=== PATIENT | male | born 1985 | race African-American/Black ===

== ENCOUNTER 2020-01-31 09:24 | Emergency (ER) | payer OTHER, SELFPAY ==
[2020-01-31 09:34] VITALS: BP 159/101; PULSE 89; RESP 16; TEMP 36.6; O2SAT 97
[2020-01-31] MEDS: Acetaminophen 500 MG TAB 1000 MG PO (10:26)
[2020-01-31 10:39] LABS: Abs Immature Grans 0.02 10^3/uL (0.0-0.06); Absolute Basophil Count 0.02 10^3/uL (0.0-0.2); Absolute Eosinophil Count 0.02 10^3/uL (0.0-0.7); Absolute Lymphocyte Count 1.98 10^3/uL (1.2-3.4); Absolute Monocyte Count 0.37 10^3/uL (0.1-0.8); Absolute Neutrophil Count 5.92 10^3/uL (1.2-6.7); Basophils % 0.2; Eosinophils % 0.2; HCT 49.3 % (40.0-50.0); HGB 16.2 g/dL (13.5-17.5); Immature Grans % 0.2; Lymphocytes % 23.8; MCH 28.4 pg (27.0-33.0); MCHC 32.9 % (32.0-36.0); MCV 86.5 fL (80-95); MPV 10.1 fL (8.0-11.0); Monocytes % 4.4; Neutrophils % 71.2; Nucleated RBC 0 %; Platelet Count 254 10^3/uL (130-400); RDW 12.2 % (11.8-14.1); RDW-SD 38.9 fL; WBC 8.33 10^3/uL (4.4-10.8)
[2020-01-31] MEDS: Buprenorphine/Naloxone 8 mg/2 mg FILM 1 EACH SL ×2 (10:55→13:00)
[2020-01-31 11:02] LABS: Tricyclic Antidepressants Negative (Negative)
[2020-01-31 11:04] LABS: *AMPHETAMINES SCREEN URINE Negative (Negative); *BARBITURATES SCREEN URINE Negative (Negative); *BENZODIAZEPINES SCREEN URINE Negative (Negative); Cannabinoids THC POSITIVE (Negative); Cocaine Screen,Urine Negative (Negative); METHADONE URINE SCREEN Negative (Negative); OPIATES URINE SCREEN Negative (Negative)
--- NOTE | 2020-01-31 11:08 | ED.GENADUL_ITS ---
Discharge Plan Disposition Patient Disposition: HOME Condition: Stable Discharge Details Clinical Impression: Opiate withdrawal Primary Care Provider: None,None ED Provider: Rony Burns Discharge Instructions Instructions: Opioid Withdrawal (ED) Additional Instructions: At this time you have been provided with a medical screening examination, laboratory values, and set up with the [facility] program Sunday morning between 6 and 7 AM. Your first dose of Suboxone was given here in the ER and a second film will be given to go home with you to take tomorrow at 11 AM. Please watch for new or worsening symptoms and return to the ER for any concerns. Narcan given, please use as directed. Watch for new or worsening symptoms and return to the ER for any concerns. Discharge Data Discharge Date/Time-TO BE ENTERED AT DEPARTURE: 01/31/20 13:14 Medical Decision Making 34-year-old gentleman, no significant past medical history, presenting requesting to initiate Suboxone therapy. He has been snorting heroin for approximately 1-1/2 months. Feels as though he is going through mild withdrawal symptoms at the moment. He has no additional questions or concerns. We initiated the MAT packet. Patient is 18 years old. He is agreeable to giving both urine and blood samples. Samples obtained. Initial COWS score was 7. Both the care management and investment recovery technician were contacted. Please see their notes and involvement. Patient request something for discomfort, was given a gram of Tylenol. All consent forms were signed. Laboratory values resulted and do not reveal any obvious emergent process. A single dose of 8-2 Suboxone was given. Patient did report significant improvement of his symptoms. He attempted to eat lunch, became nauseous. 4mg p.o. Zofran given. Nausea resolved. Patient was observed for over 45 minutes.[facility] program contacted. Patient is to go there on Sunday between 6 and 7 AM to initiate therapy. He will be discharged from the ER today with a single sublingual Suboxone film and Narcan. Patient confirms understanding of his evaluation and plan moving forward. Patient is grateful for our help today and has no additional questions or concerns upon discharge. Lab Data Lab results reviewed: Yes I reviewed the patient's lab results. Lab results narrative: Laboratory Tests Range/Units 01/31/20 01/31/20 01/31/20 10:30 10:30 10:40 WBC (4.4-10.8) 10^3/uL 8.33 RBC (4.36-5.78) 10^6/uL 5.70 Hgb (13.5-17.5) g/dL 16.2 Hct (40.0-50.0) % 49.3 MCV (80-95) fL 86.5 MCH (27.0-33.0) pg 28.4 MCHC (32.0-36.0) % 32.9 RDW (11.8-14.1) % 12.2 Plt Count (130-400) 10^3/uL 254 MPV (8.0-11.0) fL 10.1 Immature Gran % 0.2 Neutrophils % 71.2 Lymphocytes % 23.8 Monocytes % 4.4 Eosinophils % 0.2 Basophils % 0.2 Nucleated RBC % % 0 Absolute Neutrophils (1.2-6.7) 10^3/uL 5.92 Absolute Lymphocytes (1.2-3.4) 10^3/uL 1.98 Absolute Monocytes (0.1-0.8) 10^3/uL 0.37 Absolute Eosinophils (0.0-0.7) 10^3/uL 0.02 Absolute Basophils (0.0-0.2) 10^3/uL 0.02 Sodium (136-145) mmol/L 138 Potassium (3.5-5.1) mmol/L 4.1 Chloride (98-107) mmol/L 103 Carbon Dioxide (21.0-32.0) mmol/L 24.4 Anion Gap (3-11) mmol/L 10.6 BUN (7-18) mg/dL 9 Creatinine (0.70-1.30) mg/dL 1.07 Estimated GFR/1.73 m2 (mL/min/1.73m2) >= 60.00 Glucose (74-106) mg/dL 108 H Calcium (8.5-10.1) mg/dL 9.8 Total Bilirubin (0.2-1.0) mg/dL 0.8 AST (15-37) U/L 53 H ALT (16-63) U/L 85 H Alkaline Phosphatase (46-116) U/L 57 Total Protein (6.4-8.2) g/dL 8.6 H Albumin (3.4-5.0) g/dL 4.2 Urine Opiates Screen (Negative) Negative Urine Methadone Screen (Negative) Negative Ur Barbiturates Screen (Negative) Negative Ur Tricyclics Screen (Negative) Negative Ur Amphetamines Screen (Negative) Negative U Benzodiazepines Scrn (Negative) Negative Urine Cocaine Screen (Negative) Negative Ur THC Screen (Negative) Positive A Ethyl Alcohol (<3) mg/dL < 3.0 HPI General Mode of arrival: ambulatory . Date/Time Provider Initiated Documentation: 01/31/20 09:25 . Limitations to Documentation: no limitations . Information obtained by: patient . HPI Narrative: This is a 34-year-old gentleman, denies significant past medical history, presenting to the ER today requesting to initiate ULISES. He states that approximately 1-1/2 months ago he was tricked into snorting heroin, has been using daily ever since. He last used 4 days ago. Now feels shaky, nauseous, body aches, anxious. Denies recent illness or trauma. He denies any other drug use or alcohol use. He would like to initiate therapy with the [facility] program during business hours and is coming to our ER today to initiate therapy. He tells me that he has never used Suboxone before. No additional questions or concerns. Denies any IV drug use whatsoever. General Stated Complaint: DrugWithdr/MAT TONIA: 3 Review of Systems Constitutional Constitutional: Denies fatigue, Denies fever(s) and Denies headache(s) ENT Ears, Nose, Mouth, and Throat: Denies headache(s) Cardiovascular Cardiovascular: Denies chest pain and Denies dyspnea Respiratory Respiratory: Denies cough and Denies dyspnea Gastrointestinal Gastrointestinal: Reports abdominal pain (Cramping) and Denies vomiting Musculoskeletal Musculoskeletal: Reports myalgias Integumentary/Breasts Skin/Breast: Denies rash Neurologic Neurologic: Denies headache(s) Endocrine Endocrine: Denies fatigue [facility] Social History Smoking/Tobacco Use Status: Current every day Tobacco Type: e-cigarettes Smoking risk assessment performed?: Yes Alcohol Intake: never Drug use: Daily Substance use type: heroin Details: x 1 month Do you feel safe at home: Yes Do you feel safe in your relationship?: Yes Exam Const General: cooperative, healthy appearing, comfortable, no acute distress and anxious (Minimally) Orientation: alert and awake [facility] Head: normal to inspection, normocephalic and atraumatic Face and sinus: normal facial exam Mouth: moist mucous membranes Eyes General: appearance normal, both eyes and all related structures Conjunctivae: conjunctivae normal Sclera: sclerae normal Neck Neck: normal visual inspection, full ROM, meningismus present, trachea midline and supple Resp Effort & Inspection: normal respiratory effort and able to speak in complete sentences Auscultation: clear to auscultation bilaterally Cardio Rate: regular rate Rhythm: regular rhythm GI Palpation: soft, not firm, no guarding and nontender Auscultation: normal bowel sounds Back/Spine/Pelvis Back: back tenderness (Diffuse mild lumbar) Skin General skin exam: no rashes or lesions noted Neuro General: patient alert, patient awake, patient oriented x3, moves all extremities and no focal motor deficits Cognition: normal cognition Speech: speech normal Gait: normal gait Motor: muscle tone normal throughout Sensory Exam: no sensory deficits noted Extrem General: normal to inspection, full ROM and capillary refill normal Psych Appearance: grossly normal Mental Status: mental status grossly normal Course Vital Signs Vital signs: Vital Signs Temperature 36.6 C 01/31/20 09:34 Pulse 89 01/31/20 09:34 Respiratory Rate 16 01/31/20 09:34 Blood Pressure 159/101 H 01/31/20 09:34 Pulse Oximetry 97 01/31/20 09:34 Temperature 36.6 C 01/31/20 09:34 Temperature Source Skin 01/31/20 09:34 Pulse 89 01/31/20 09:34 Respiratory Rate 16 01/31/20 09:34 Respiratory Effort Non-Labored 01/31/20 09:36 Respiratory Pattern Normal 01/31/20 09:42 Blood Pressure 159/101 H 01/31/20 09:34 Blood Pressure Position Sitting 01/31/20 09:34 Pulse Oximetry 97 01/31/20 09:34 Oxygen Delivery Method Room Air 01/31/20 09:34 Oxygen Flow Rate 0 01/31/20 09:34 Pain Level 8 01/31/20 09:34 Comment 01/31/20 09:34 Lab/Test Results Lab/Test Results: Laboratory Tests Range/Units 01/31/20 01/31/20 10:30 10:40 WBC (4.4-10.8) 10^3/uL 8.33 RBC (4.36-5.78) 10^6/uL 5.70 Hgb (13.5-17.5) g/dL 16.2 Hct (40.0-50.0) % 49.3 MCV (80-95) fL 86.5 MCH (27.0-33.0) pg 28.4 MCHC (32.0-36.0) % 32.9 RDW (11.8-14.1) % 12.2 Plt Count (130-400) 10^3/uL 254 MPV (8.0-11.0) fL 10.1 Immature Gran % 0.2 Neutrophils % 71.2 Lymphocytes % 23.8 Monocytes % 4.4 Eosinophils % 0.2 Basophils % 0.2 Nucleated RBC % % 0 Absolute Neutrophils (1.2-6.7) 10^3/uL 5.92 Absolute Lymphocytes (1.2-3.4) 10^3/uL 1.98 Absolute Monocytes (0.1-0.8) 10^3/uL 0.37 Absolute Eosinophils (0.0-0.7) 10^3/uL 0.02 Absolute Basophils (0.0-0.2) 10^3/uL 0.02 Urine Opiates Screen (Negative) Negative Urine Methadone Screen (Negative) Negative Ur Barbiturates Screen (Negative) Negative Ur Tricyclics Screen (Negative) Negative Ur Amphetamines Screen (Negative) Negative U Benzodiazepines Scrn (Negative) Negative Urine Cocaine Screen (Negative) Negative Ur THC Screen (Negative) Positive A
[2020-01-31 11:12] LABS: ALT 85 U/L (16-63); AST 53 U/L (15-37); Albumin 4.2 g/dL (3.4-5.0); Alkaline Phosphatase 57 U/L (46-116); Anion Gap 10.6 mmol/L (3-11); BUN 9 mg/dL (7-18); Bilirubin, Total 0.8 mg/dL (0.2-1.0); CO2 24.4 mmol/L (21.0-32.0); CREATININE 1.07 mg/dL (0.70-1.30); Calcium 9.8 mg/dL (8.5-10.1); Chloride 103 mmol/L (98-107); Glucose 108 mg/dL (74-106); Potassium 4.1 mmol/L (3.5-5.1); Sodium 138 mmol/L (136-145); Total Protein 8.6 g/dL (6.4-8.2)
[2020-01-31] MEDS: Ondansetron O.D.T. 4 MG TABEF PO (11:17)
[2020-01-31 11:24] LABS: ETHANOL BLOOD < 3.0 mg/dL (<3)
[2020-01-31 13:15] VITALS: BP 143/90; PULSE 72; RESP 16; TEMP 36.6; O2SAT 100
--- NOTE | 2020-01-31 16:17 | PDOC.ERCMPRO ---
- If Service Date Differs Date of service: 01/31/20 Time of Service: 16:17 Care Management Progress Note S/O:CM asked by provider to see patient. He is a 34 year old man who presented to the Ed for ULISES protocol initiation. He stated to CM that he started using heroin about 2 months ago and wants to stop. He and his significant other relocated to [facility] on Sunday of this week. His is a travel nurse and is assigned to this area for the next 3 months. They have housing, insurance, income and a car. The ED contacted the [address] Judge solar energy installation manager who spoke to Rony on the phone. HAZEL was asked to assist with the ULISES protocol. HAZEL contacted the physician solar energy installation manager for [facility] to inform her of the need for dosing on Sunday. HAZEL also faxed a last dose letter describing the treatment provided at [facility]. including specific dosing and ensured that all necessary documents had been faxed to [facility]. CM will follow up on Sunday to ensure patient presented for treatment. P: Referral made by phone and fax to [facility] to initiate suboxone treatment. CM will follow up on Sunday to ensure fax received and patient treatment initiated.
[2020-02-02 09:14] LABS: HBs Antibody, Quant <3.1 mIU/mL (See Note); Hepatitis B Surface Ab Negative (See Note)
[2020-02-02 10:03] LABS: HIV-1/2 Ag & Ab Screen Negative (Negative)
[2020-02-02 10:47] LABS: Hepatitis C Ab w Rflx HCV PCR Reactive (Negative)
[2020-02-04 13:37] LABS: HCV RNA Qualitative Detected (Undetected)
== END 2020-01-31 13:14 | disposition home or self-care (01) ==
PROVIDERS: Emergency Provider Physician Assistant
DX: F11.23 Opioid dependence with withdrawal (principal)
CPT/HCPCS: 36415; 80053; 80307; 86706; 86803; 87389; 87522; 99283; 80320; 85025